=== PATIENT | male | born 1975 | race Caucasian/White ===

== ENCOUNTER 2020-10-15 23:08 | Emergency (ER) | payer OTHER ==
[~2020-10-15] VITALS: Ht 180.3 cm; Wt 118.0 kg
--- NOTE | 2020-10-15 23:23 | PHYS DOC ---
Past Medical History Past Medical History: Anxiety General Adult EDM: Chief Complaint: DIZZY/LIGHT HEADED HPI: HPI: Patient is a 45-year-old male who presents for dizziness. States this is a chronic issue. He has uncontrolled anxiety that has been worse recently. Sta matt he has had increased social stressors recently such as the of his approximately 1 year ago among other things. Reports 3 days ago he was at work, reports his hands started getting sweaty and tingly, states "my fight or flight system kicked in and I just got really nervous". Reports getting lightheaded and dizzy while at work after getting overwhelmed and had to sit down which improved his symptoms. EMS was called to evaluate patient given his appearance at work and it was recommended that he present to the ER for evaluation, states he was asymptomatic and refused hospital transport. Reports he drove himself home and has been at baseline health ever since. He has been working out every day since. 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 Reports he often goes to the gym or the grocery store and gets so overwhelmed he just leaves. He is seen in the outpatient setting by his primary care physician who has experimented with SSRIs and currently has him on buspirone and hydroxyzine which he reports has helped his symptoms. He is scheduled to see a counselor for the first time tomorrow. He is scheduled to establish care with a psychiatrist in 2 weeks. Patient drove himself to our ER as he was anxious and concerned that he should have been checked out 3 days prior, reports he is asymptomatic at present. He was sleeping on arrival to ER room by myself for evaluation, he has no acute complaints right now Review of Systems: Review of Systems: Fourteen body systems of review of systems have been reviewed. See HPI for pertinent positives and negative responses, other belcher all other systems are negative, non-pertinent or non-contributory Heart Score: C/O Chest Pain: No HEART Score for Chest Pain: HEART Score for Chest Pain Response (Comments) Value History Slighlty/Non-Suspicious 0 ECG Normal 0 Age < 45 0 Risk Factors 1 or 2 Risk Factors 1 Total 1 Risk Factors: Risk Factors: DM, Current or recent (<one month) smoker, HTN, HLP, family hist ory of CAD, obesity. Risk Scores: Score 0 - 3: 2.5% MACE over next 6 weeks - Discharge Home Score 4 - 6: 20.3% MACE over next 6 weeks - Admit for Clinical Observation Score 7 - 10: 72.7% MACE over next 6 weeks - Early Invasive Strategies Physical Exam: PE: Constitutional: Pt is oriented to person, place, and time. Pt appears well-developed and well- nourished. Obese HEENT: Head: Normocephalic and atraumatic. TMs clear, no hemotympanum Conjunctivae and EOM are normal. Pupils are equal, round, and reactive to light. Oropharynx is clear and moist. No hematomas or lacerations or abrasions to face or scalp OP clear, no blood, no malocclusion, dentition intact Nares clear, no nasal septal hematoma Midface stable Neck: C-spine midline nontender, no step-offs Cardiovascular: Normal rate, regular rhythm and normal heart sounds. Pulmonary/Chest: Effort normal and breath sounds normal. No respiratory distress. No wheezes. CTA bilaterally Abdominal: Soft and protuberant. Bowel sounds are normal. Pt exhibits no distension. There is no tenderness. Musculoskeletal: No bony tenderness to extremities, no deformities, full ROM extremities Chest wall stable Pelvis stable and non-tender No vertebral TTP and spine without stepoffs Neurological: Pt is alert and oriented to person, place, and time. Moving all extremities willfully, able to wiggle all fingers and toes Alert and oriented x 3 Cranial nerves II through XII intact Motor and sensory function intact Skin: Skin is warm and dry. No abrasions, no lacerations Psychiatric: Anxious affect and mood Current Patient Data: Vital Signs: Vital Signs Date Time Temp Pulse Resp B/P (MAP) Pulse Ox O2 Delivery O2 Flow Rate FiO2 10/15/20 23:25 97.8 90 20 167/88 (114) 100 Room Air 97.8 Vital Signs Date Time Temp Pulse Resp B/P (MAP) Pulse Ox O2 Delivery O2 Flow Rate FiO2 10/16/20 00:29 86 20 156/92 (113) 96 Room Air 10/15/20 23:25 97.8 97.8 EKG: EKG: EKG ordered and interpreted by myself at 2334 hrs. as sinus rhythm at 91 bpm, unremarkable intervals, no axis deviation, no acute ischemic findings, no STEMI Radiology/Procedures: Radiology/Procedures: [] Course & Med Decision Making: Course & Med Decision Making Vital signs stable. HPI concerning for likely anxiety/panic attacks. Physical exam nonconcerning for emergent or surgical issues Thorough history was elicited. Patient on right track of care, would benefit from counselor, psychiatry, and continued medication regiment adjustments in outpatient setting. I disclosed I am hesitant to change his current medication regiment given that his PCP knows his case better than I He is asymptomatic at present. I discussed his physical exam was nonconcerning. He has been asymptomatic the entirety of today. I disclose there is little indication for further diagnostic work-up such as laboratory and/or imaging, patient agreed I advised patient to follow-up with counselor tomorrow to establish care as previously scheduled, I also advised him to contact PCP and psychiatrist to schedule close follow-up within upcoming 5 days for repeat evaluation and to review current medications. I discussed most likely diagnosis of anxiety/panic attacks and agoraphobia that is suboptimally treated with outpatient medications at this time. I discussed little value in diagnostic work-up in ER setting. He would most benefit from PCP/psychiatry follow-up and counseling/therapy Patient agreeable to proposed plan of care, given that he has been asymptomatic throughout entirety of today, he feels safe with discharge home and close outpatient follow-up Strict return precautions were discussed with good understanding by patient, all questions and concerns addressed prior to ER departure Luci Disclaimer: Luci Disclaimer: This electronic medical record was generated, in whole or in part, using a voice recognition dictation system. Departure Departure Impression: Primary Impression: Panic attack Additional Impression: Anxiety about health Disposition: HOME / SELF CARE / HOMELESS Condition: STABLE Patient Instructions: Anxiety and Panic Attacks Additional Instructions: You were seen in the ED for evaluation of anxiety. Anxiety is a serious medical condition with unfortunate effects on daily living. Your physical exam, EKG and fingerstick blood glucose reading were reassuring. I disclose potential need for further diagnostic work-up in ER but given that you are asymptomatic, joint decision made to defer. After listening to your history of recent illness, it is likely you are suffering from uncontrolled anxiety. I am happy you have a counselor appointment set up for later today, I advise you contact your primary care provider and pending psychiatry physician when they open today to discuss need for close follow-up to address current medications you are taking. If any concerning signs or symptoms present prior to outpatient follow-up please do not hesitate to come back for repeat evaluation. It was a pleasure to take care of you and I wish you the best going forward SINGH COOK DO October 15, 2020 23:23
[2020-10-16 00:29] VITALS: BP 156/92
== END 2020-10-16 01:00 | disposition home or self-care (01) ==
LOC: ER 23:08
DX: F41.9 Anxiety disorder, unspecified (principal); F41.0 Panic disorder [episodic paroxysmal anxiety]; R42 Dizziness and giddiness
CPT/HCPCS: 82962; 93005; 99284